=== PATIENT | female | born 2000 | race Two or more races ===

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

== ENCOUNTER 2019-05-19 21:09 | Emergency (ER) | payer SELFPAY ==
[~2019-05-19] VITALS: Ht 157.5 cm; Wt 63.0 kg
[~2019-05-19 21:09] MED LIST: CEPH-443 PO; HYDR-4011 PO; IBUP-1542 PO
[2019-05-19 21:33] VITALS: BP 136/75; PULSE 113; RESP 20; Ht 157.5 cm; Wt 63.0 kg
== END 2019-05-20 00:16 | disposition left against medical advice (07) ==
LOC: FTE 21:09
DX: Z53.21 Procedure and treatment not carried out due to patient leaving prior to being seen by health care provider (principal)